=== PATIENT | male | born 1995 | race Caucasian/White ===

== ENCOUNTER 2016-06-19 02:59 | Emergency (ER) | payer SELFPAY ==
[~2016-06-19] VITALS: Ht 175.3 cm; Wt 89.5 kg
[2016-06-19 03:03] VITALS: BP 152/112; PULSE 117
[2016-06-19] MEDS ORDERED: TRESIBA FL100 UNIT/1 (03:30)
== END 2016-06-19 03:35 | disposition left against medical advice (07) ==
LOC: COL.ER 02:59
DX: R41.82 Altered mental status, unspecified (principal); Z53.21 Procedure and treatment not carried out due to patient leaving prior to being seen by health care provider

== ENCOUNTER 2023-06-26 15:39 | Emergency (ER) | payer BC ==
[~2023-06-26] VITALS: Ht 175.3 cm; Wt 104.5 kg
[~2023-06-26 15:39] MED LIST: TRESIBA FL100 UNIT/1
[2023-06-26 15:50] VITALS: TEMP 98.3
[2023-06-26] MEDS ORDERED: Bacitracin Topical Oint 30 GM TUBE TOP ONE (17:00)
[2023-06-26 17:44] VITALS: BP 168/89; PULSE 80
== END 2023-06-26 17:47 | disposition home or self-care (01) ==
LOC: COL.ER 15:39
DX: T23.302A Burn of third degree of left hand, unspecified site, initial encounter (principal); E10.9 Type 1 diabetes mellitus without complications; Z96.41 Presence of insulin pump (external) (internal); Z23 Encounter for immunization; X19.XXXA Contact with other heat and hot substances, initial encounter; Y93.G3 Activity, cooking and baking